=== PATIENT | female | born 1930 | race Caucasian/White ===

== ENCOUNTER 2016-12-29 21:50 | Inpatient (IN) | payer MEDICARE, BC ==
[2016-12-29] MEDS ORDERED: NS 0.9% 1000 ML* 1,000 ML IV ONE (22:20)
--- NOTE | 2016-12-29 22:49 | RAD ---
Indication: Diarrhea. Dehydration. Cardiac disease. History of tobacco use. Breast carcinoma. Comparison: March 02, 2016 Technique: Upright AP 2225 hours Report: Elevated lung volumes and mild prominence of the interstitial markings. Clear pleural spaces. Negative for pneumothorax. Median sternotomy wires, mediastinal vascular clips, RIGHT ventricular pacemaker lead. Retrocardiac lucency corresponds with a large hiatal hernia. Prominent central pulmonary vasculature with peripheral attenuation most likely reflecting pulmonary arterial hypertension. IMPRESSION: 1. Stigmata of chronic obstructive pulmonary disease with probable pulmonary arterial hypertension. 2. No evidence for pneumonia or compelling evidence for pulmonary edema. 3. Large retrocardiac hiatal hernia.
[2016-12-29 22:50] LABS: ALT 168 U/L (7-52); Albumin 3.5 g/dL (3.2-5.2); Alkaline Phosphatase 175 U/L (34-104); BUN/Creatinine Ratio 22.7 (8-20); Blood Urea Nitrogen 65 mg/dL (6-24); CO2 Carbon Dioxide 15 mmol/L (22-32); Calcium 8.8 mg/dL (8.6-10.3); Chloride 98 mmol/L (101-111); EGFR African American 20.1 (>60); EGFR Non-African American 15.6 (>60); Globulin 3.6 g/dL (2-4); Glucose 178 mg/dL (70-100); Sodium 122 mmol/L (133-145); Total Protein 7.1 g/dL (6.4-8.9)
[2016-12-29 22:52] LABS: Troponin I 1.85 ng/mL (<0.04)
[2016-12-29] MEDS ORDERED: Ondansetron ODT TAB* 4 MG SL PRN (23:05)
[2016-12-29] MEDS ORDERED: Ondansetron ODT TAB* 4 MG ONE (23:07)
--- NOTE | 2016-12-29 23:35 | HP ---
H&P (Free Text) History and Physical: PCP: Mike Esparza MD Date/Time of Evaluation: 12/30/2016 2300 CC: diarrhea, generalized weakness HPI: Mrs Jarquin is an 86YO female living independently at [facility] HX GI bleeding, CAD who has had intermittent watery diarrhea with occasional fecal incontinence for ~1 month. She saw her PCP last week, reportedly having blood work done which was normal. She is fatigued, but arouses and answers appropriately, in fact recognizes me from her admission March 2016. She states her diarrhea worsened ~2 days ago. Her daughter who is at the bedside states it obviously had bright red blood in it and shows cell phone images of charcoal colored fecal incontinence on a floor and stool in a toiled ringed in bright red. She has had some nausea, but denies chest pain, SOB, F/C, B/U/F of urine, & palpitations. She began having some mild crampy abdominal pain ~30 minutes ago. Work up is notable hypotension systolics 90s, tachypnea in the low 20s, afebrile , & with an saO2 w/ poor pleth of 88% correlating with the reading reported by EMS. ECG is ventricularly paced, rate 50. CXR is negative for infiltrate or CHF. PMedHx CAD/stent/CABG HTN HLD breast CA PUD recurrent GI hemorrhage Allergies Warfarin [From Coumadin] Allergy (Severe, Verified 12/29/16 22:39) SEVERE RASH, ITCHING, SWELLIN Rash, Itching, Swelling Cefuroxime [From Ceftin] Allergy (Intermediate, Verified 12/29/16 22:39) Nausea And Vomiting Sulfa Antibiotics Allergy (Intermediate, Verified 12/29/16 22:39) LEGS AND FEET SWELL NSAID/ASPIRIN Adverse Reaction (Intermediate, Uncoded 12/29/16 22:39) HISTORY OF GI BLEED Ambulatory Orders Nursing to reconcile. PSurgHx CABG R TKA cholecystectomy pacer placement hysterectomy IVC filter placement sinus surgery cataract extraction tonsillectomy SocHx: no tobacco, alcohol, or recreational drugs; lives independently at [facility], ambulates using cane; DNR/I code status FamHx: reviewed, non-contributory ROS: as above, otherwise reviewed and all were negative Constitutional: NAD, normally developed, well-nourished critically-ill appearing elderly white female vitals: Vital Signs Temp 36.6 C 12/29/16 22:34 Pulse 53 12/30/16 00:45 Resp 23 12/30/16 01:00 BP 90/47 12/30/16 01:00 Pulse Ox 100 12/30/16 00:45 Intake & Output 12/29/16 12/29/16 12/30/16 11:59 23:59 12:59 Weight 40.823 kg HEENM: atraumatic; sclera/conjunctiva: non-icteric/clear; palpebra: pale; blephara: sunken; hearing: moderately decreased; oropharynx: clear, mucosa dry & pale, lips cyanotic Neck: soft tissue: no nuchal rigidity; thyroid: normal Pulmonary: clear to auscultation bilaterally, good to fair aeration, no accessory muscle use CV: BR/RR, normal S1S2, no carotid bruit, no jugular venous distention, 2+ B DP/ PT, no edema Abdominal: soft, non-distended, non-tender, no rebound/guarding/rigidity, hypoactive bowel sounds, no hepatosplenomegaly or masses, no costovertebral angle tenderness Musculoskeletal: general: grossly intact; gait: too ill to ambulate Integumental: pale Psychiatric orientation: AA&O to PPS affect: somnolent mood: pleasant eye contact: poor content: reliable responses: mildly slowed insight: fair Testing: Lab Results 12/29/16 12/29/16 12/29/16 Range/Units 22:30 23:00 23:00 WBC (3.5-10.8) 10^3/ul RBC (4.0-5.4) 10^6/ul Hgb (12.0-16.0) g/dl Hct (35-47) % MCV (80-97) fL MCH (27-31) pg MCHC (31-36) g/dl RDW (10.5-15) % Plt Count (150-450) 10^3/ul MPV (7.4-10.4) um3 Neut % (Auto) (38-83) % Lymph % (Auto) (25-47) % [place] % (Auto) (1-9) % Eos % (Auto) (0-6) % Baso % (Auto) (0-2) % Absolute Neuts (auto) (1.5-7.7) 10^3/ul Absolute Lymphs (auto) (1.0-4.8) 10^3/ul Absolute Monos (auto) (0-0.8) 10^3/ul Absolute Eos (auto) (0-0.6) 10^3/ul Absolute Basos (auto) (0-0.2) 10^3/ul Absolute Nucleated RBC 10^3/ul Nucleated RBC % Sodium 122 L (133-145) mmol/L Potassium TNP Chloride 98 L (101-111) mmol/L Carbon Dioxide 15 L (22-32) mmol/L Anion Gap TNP BUN 65 H (6-24) mg/dL Creatinine 2.86 H (0.51-0.95) mg/dL Est GFR ( Amer) 20.1 (>60) Est GFR (Non-Af Amer) 15.6 (>60) BUN/Creatinine Ratio 22.7 H (8-20) Glucose 178 H (70-100) mg/dL Lactic Acid 3.0 H* (0.5-2.0) mmol/L Calcium 8.8 (8.6-10.3) mg/dL Total Bilirubin 0.70 (0.2-1.0) mg/dL AST TNP ALT 168 H (7-52) U/L Alkaline Phosphatase 175 H (34-104) U/L Troponin I 1.85 H* (<0.04) ng/mL B-Natriuretic Peptide 1880 H ( - 100) pg/mL Total Protein 7.1 (6.4-8.9) g/dL Albumin 3.5 (3.2-5.2) g/dL Globulin 3.6 (2-4) g/dL Albumin/Globulin Ratio 1.0 (1-3) 12/30/16 Range/Units 00:32 WBC 15.9 H (3.5-10.8) 10^3/ul RBC 3.54 L (4.0-5.4) 10^6/ul Hgb 11.3 L (12.0-16.0) g/dl Hct 35 (35-47) % MCV 100 H (80-97) fL MCH 32 H (27-31) pg MCHC 32 (31-36) g/dl RDW 14 (10.5-15) % Plt Count 259 (150-450) 10^3/ul MPV 9 (7.4-10.4) um3 Neut % (Auto) 75.4 (38-83) % Lymph % (Auto) 10.0 L (25-47) % [place] % (Auto) 14.3 H (1-9) % Eos % (Auto) 0.1 (0-6) % Baso % (Auto) 0.2 (0-2) % Absolute Neuts (auto) 12.0 H (1.5-7.7) 10^3/ul Absolute Lymphs (auto) 1.6 (1.0-4.8) 10^3/ul Absolute Monos (auto) 2.3 H (0-0.8) 10^3/ul Absolute Eos (auto) 0 (0-0.6) 10^3/ul Absolute Basos (auto) 0 (0-0.2) 10^3/ul Absolute Nucleated RBC 0.02 10^3/ul Nucleated RBC % 0.1 Sodium (133-145) mmol/L Potassium Chloride (101-111) mmol/L Carbon Dioxide (22-32) mmol/L Anion Gap BUN (6-24) mg/dL Creatinine (0.51-0.95) mg/dL Est GFR ( Amer) (>60) Est GFR (Non-Af Amer) (>60) BUN/Creatinine Ratio (8-20) Glucose (70-100) mg/dL Lactic Acid (0.5-2.0) mmol/L Calcium (8.6-10.3) mg/dL Total Bilirubin (0.2-1.0) mg/dL AST ALT (7-52) U/L Alkaline Phosphatase (34-104) U/L Troponin I (<0.04) ng/mL B-Natriuretic Peptide ( - 100) pg/mL Total Protein (6.4-8.9) g/dL Albumin (3.2-5.2) g/dL Globulin (2-4) g/dL Albumin/Globulin Ratio (1-3) ECG, personally reviewed: ventricularly paced, rate 50 CXR, personally reviewed: IMPRESSION: 1. Stigmata of chronic obstructive pulmonary disease with probable pulmonary arterial hypertension. 2. No evidence for pneumonia or compelling evidence for pulmonary edema. 3. Large retrocardiac hiatal hernia. Impression: 86F presenting with hypotensive bright red blood in the stool HX PUD & GI bleeding and a HGB of 11.3 makes me most concerned for sudden massive upper GI bleed explaining her troponin of 1.8 (given HX CAD/CABG/stent), lactic acid of 3.0; however, I discussed with her twin daughters who are present that VT could produce this, but is less likely; additionally, while ischemic bowel is usually painful it is certainly possible. With her DNR/I status critically- ill appearance, I advised that if her clinical picture is due to ischemic bowel she will not survive regardless of management, that if her situation was due to a massive VT similarly she would be very unlikely to survive. However, if her illness is a massive upper GI bleed, we may be able to return her to her former functional status. They expressed understanding and agreed to that approach. As such, no CT of the abdomen was performed as it would only delay the potential treatment of hemorrhage and not likeley provide any information useful in treatment. DIAGNOSIS & PLAN Primary SIRS 2nd suspected GI hemorrhage, less likely sepsis of unknown source (? ischemic bowel) or primary VT : ICU admission : IVFs : type & cross, 2 units on hold : trend H&H : ED MD to place central line for pressor support : norepinephrine GTT : IV piperacillin/tazobactam empirically : blood & urine CXs : supplemental oxygen : supportive care NSTEMI HX CAD : doubt primary coronary occlusive event as she has chest pain/SOB/diaphoresis : suspect 2nd demand ischemia 2nd massive GI hemorrhage vs overwhelming sepsis : no heparin or aspirin 2nd bright red blood per rectum : no beta donna 2nd hypotension DERRICK : IVFs, trend hypoNatremia : suspect hypovolemic : IVFs & trend acute heart failure : suspect high output from acute blood loss vs sepsis Secondary HTN : hold anti-hypertensives for now breast CA : no acute issues PUD : IV pantoprazole bolus/GTT Admission Rational: observation for TIA work up DVTp: SCDs, no anticoagulation 2nd HX recurrent GI hemorrhage Code Status: DNR/I HCP: children collectively
[2016-12-30 00:46] LABS: Hematocrit 35 % (35-47); Hemoglobin 11.3 g/dl (12.0-16.0); Mean Corpuscular HGB Conc 32 g/dl (31-36); Mean Corpuscular Hemoglobin 32 pg (27-31); Mean Corpuscular Volume 100 fL (80-97); Mean Platelet Volume 9 um3 (7.4-10.4); Red Blood Count 3.54 10^6/ul (4.0-5.4); Red Cell Distribution Width 14 % (10.5-15); White Blood Count 15.9 10^3/ul (3.5-10.8)
[2016-12-30 00:49] LABS: Add Diff/Slide Review? Slide Review Added; Comments Flag Yes
[2016-12-30] MEDS ORDERED: Pantoprazole IV* 40 MG IV ONE (00:57)
[2016-12-30] MEDS ORDERED: Pantoprazole IV* 80 MG in NS 0.9% 250 ML* 250 ML IV SCH (01:00)
--- NOTE | 2016-12-30 01:29 | ED ---
Johnny José Matthew, scribed for Oscar Molina on 12/29/16 at 2223 . GI/ HPI - HPI Summary HPI Summary: An 86 y/o female presents to the ED with diarrhea since 2 days ago. Associated symptoms include weakness, black stools, and blood w/ stools. The patient has had intermittent bouts of diarrhea since November. The patient does not use home oxygen. She was seen by her PCP 4 days ago. - History of Current Complaint Time Seen by Provider: 12/29/16 21:52 Stated Complaint: GENERAL Hx Obtained From: Patient Onset/Duration: Started Days Ago, Atraumatic, Still Present Severity: Moderate Current Severity: Moderate Associated Signs and Symptoms: Positive: Weakness - general, Black Tarry Stool, Blood w/Stool, Diarrhea - Additional Pertinent History Primary Care Physician: SUSAN - Allergy/Home Medications Allergies/Adverse Reactions: Allergies Allergy/AdvReac Type Severity Reaction Status Date / Time Warfarin [From Coumadin] Allergy Severe SEVERE Verified 12/29/16 22:39 RASH, ITCHING, SWELLIN Cefuroxime [From Ceftin] Allergy Intermediate Nausea And Verified 12/29/16 22:39 Vomiting Sulfa Antibiotics Allergy Intermediate LEGS AND Verified 12/29/16 22:39 FEET SWELL NSAID/ASPIRIN AdvReac Intermediate HISTORY OF Uncoded 12/29/16 22:39 GI BLEED PMH/Surg Hx/FS Hx/Imm Hx Endocrine/Hematology History: Reports: Hx Blood Transfusions, Hx Anemia Denies: Hx Anticoagulant Therapy, Hx Diabetes Cardiovascular History: Reports: Hx Auto Implanted Cardiovert Defib, Hx Congestive Heart Failure, Hx Coronary Artery Disease, Hx Hypercholesterolemia, Hx Hypertension, Hx Pacemaker/ICD, Hx Valvular Heart Disease Denies: Hx Myocardial Infarction, Hx Peripheral Vascular Disease Respiratory History: Reports: Hx Pulmonary Embolism - HX OF BLOOD CLOT IN LEFT LEG AFTER CARDIAC SURGERY Denies: Hx Asthma, Hx Chronic Obstructive Pulmonary Disease (COPD) GI History: Reports: Hx Gastroesophageal Reflux Disease, Hx Gastrointestinal Bleed, Hx Hiatal Hernia, Hx Ulcer, Other GI Disorders - GI bleeds x 2 in the past Musculoskeletal History: Reports: Hx Back Problems Denies: Hx Arthritis, Hx Osteoporosis Sensory History: Reports: Hx Cataracts, Hx Contacts or Glasses, Hx Macular Degeneration, Hx Vision Problem, Hx Hearing Aid, Hx Hearing Problem Denies: Hx Eye Injury, Hx Eye Prosthesis Opthamlomology History: Reports: Hx Cataracts, Hx Contacts or Glasses, Hx Macular Degeneration, Hx Vision Problem Denies: Hx Eye Injury, Hx Eye Prosthesis Neurological History: Denies: Hx Dementia, Hx Developmental Delay, Hx Headaches, Hx Migraine, Hx Nerve Disease, Hx Seizures, Hx Spinal Cord Injury, Hx Transient Ischemic Attacks (TIA) - Cancer History Cancer Type, Location and Year: breast cancer with left lumpectomy 2013 Hx Chemotherapy: No Hx Radiation Therapy: No - Surgical History Surgery Procedure, Year, and Place: 1997 CHOLECYSTECTOMY,. 2000 HI FILTER INSERTION,. 2000 RIGHT TOTAL KNEE REPLACEMENT,. MULTIPLE BENIGN BREAST BIOPSIES,. 1979 COMPLETE HYSTERECTOMY,. EXTENSIVE SURGERIES. 1999 CARDIAC CATHETERIZATION WITH ANGIOPLASTY AND 2 STENTS, [place]. 2010 ANGIOPLASTY WITH CARDIAC STENT PLACEMENT, [place]. 1999 TRIPLE CARDIAC BYPASS, [place] Hx Anesthesia Reactions: No - Immunization History Date of Tetanus Vaccine: Unk Date of Influenza Vaccine: None Infectious Disease History: Reports: Hx of Known/Suspected MRSA - lower extremity wound, now healed Denies: Hx Clostridium Difficile, Hx Hepatitis, Hx Human Immunodeficiency Virus (HIV), Hx Shingles, Hx Tuberculosis, Hx Known/Suspected VRE, Hx Known/ Suspected VRSA - Family History Known Family History: Negative: Diabetes Family History: No FHx of breast CA - Social History Alcohol Use: None Substance Use Type: Reports: None Hx Tobacco Use: Yes Smoking Status (MU): Never Smoked Tobacco Have You Smoked in the Last Year: No Review of Systems Constitutional: Negative Eyes: Negative ENT: Negative Cardiovascular: Negative Respiratory: Negative Positive: Diarrhea. Negative: Abdominal Pain Genitourinary: Other - blood w/ stools, black stools Musculoskeletal: Negative Skin: Negative Neurological: Negative Psychological: Normal All Other Systems Reviewed And Are Negative: Yes Physical Exam Triage Information Reviewed: Yes Vital Signs On Initial Exam: Initial Vitals Temp Pulse Resp BP Pulse Ox 97.8 F 50 24 96/46 90 12/29/16 21:51 12/29/16 21:51 12/29/16 21:51 12/29/16 21:51 12/29/16 21:51 Vital Signs Reviewed: Yes Appearance: Positive: No Pain Distress Skin: Positive: Warm, Skin Color Reflects Adequate Perfusion, Dry Head/Face: Positive: Normal Head/Face Inspection Eyes: Positive: EOMI, SKYLAR ENT: Positive: Other - dry mucous membranes; HABEMATOLEL Neck: Positive: Supple, Nontender Respiratory/Lung Sounds: Positive: Clear to Auscultation, Breath Sounds Present Cardiovascular: Positive: RRR, Pulses are Symmetrical in both Upper and Lower Extremities Abdomen Description: Positive: Nontender, Soft Bowel Sounds: Positive: Present Musculoskeletal: Positive: Normal, Strength/ROM Intact Neurological: Positive: Normal, Sensory/Motor Intact, Alert, Oriented to Person Place, Time Psychiatric: Positive: Affect/Mood Appropriate Diagnostics - Vital Signs Vital Signs Temp Pulse Resp BP Pulse Ox 12/29/16 23:30 49 20 92/49 100 12/29/16 23:27 50 20 100/42 99 12/29/16 23:26 55 18 87 12/29/16 23:10 50 20 97/47 94 12/29/16 23:00 50 22 99 12/29/16 22:44 91/44 12/29/16 22:34 97.8 F 50 24 96/46 90 12/29/16 22:00 92/60 12/29/16 21:55 48 22 96/46 85 12/29/16 21:54 25 20 88 12/29/16 21:51 97.8 F 50 24 96/46 90 - Laboratory Lab Results: Lab Results 12/29/16 12/29/16 12/29/16 Range/Units 22:30 23:00 23:00 Sodium 122 L (133-145) mmol/L Potassium TNP Chloride 98 L (101-111) mmol/L Carbon Dioxide 15 L (22-32) mmol/L Anion Gap TNP BUN 65 H (6-24) mg/dL Creatinine 2.86 H (0.51-0.95) mg/dL Est GFR ( Amer) 20.1 (>60) Est GFR (Non-Af Amer) 15.6 (>60) BUN/Creatinine Ratio 22.7 H (8-20) Glucose 178 H (70-100) mg/dL Lactic Acid 3.0 H* (0.5-2.0) mmol/L Calcium 8.8 (8.6-10.3) mg/dL Total Bilirubin 0.70 (0.2-1.0) mg/dL AST TNP ALT 168 H (7-52) U/L Alkaline Phosphatase 175 H (34-104) U/L Troponin I 1.85 H* (<0.04) ng/mL B-Natriuretic Peptide 1880 H ( - 100) pg/mL Total Protein 7.1 (6.4-8.9) g/dL Albumin 3.5 (3.2-5.2) g/dL Globulin 3.6 (2-4) g/dL Albumin/Globulin Ratio 1.0 (1-3) Result Diagrams: 12/30/16 00:32 12/29/16 22:30 Lab Statement: Any lab studies that have been ordered have been reviewed, and results considered in the medical decision making process. - Radiology CXR Xray Interpretation: Positive (See Comments) - IMPRESSION: 1. Stigmata of chronic obstructive pulmonary disease with probable pulmonary arterial hypertension. 2. No evidence for pneumonia or compelling evidence for pulmonary edema. 3. Large retrocardiac hiatal hernia. Radiology Interpretation Completed By: Radiologist - EKG 21:56 Cardiac Rate: Bradycardia - 50 bpm EKG Interpretation: Paced Rhythm GIGU Course/Dx - Course Assessment/Plan: An 86 y/o female presents to the ED with diarrhea since 2 days ago. Associated symptoms include weakness, black stools, and blood w/ stools. CXR shows stigmata of chronic obstructive pulmonary disease with probable pulmonary arterial hypertension. 2. No evidence for pneumonia or compelling evidence for pulmonary edema. 3. Large retrocardiac hiatal hernia. EKG shows paced rhythm at 50 bpm. Labs were reviewed. Discussed the case with Dr. Espino who will admit the patient into his services. - Diagnoses Provider Diagnoses: Hyponatremia, Renal failure, ACS (acute coronary syndrome), Sepsis, GI bleed - Physician Notifications Discussed Care Of Patient With: Dr. Espino (Hospitalist) at 22:51 -- Notified of patient's history and will admit the patient into his services. - Critical Care Time Critical Care Time: 30-74 min - sepsis/gi bleeding Discharge - Discharge Plan Condition: Stable Disposition: ADMITTED TO [facility] documentation as recorded by the Johnny hall Matthew accurately reflects the service I personally performed and the decisions made by , Oscar Molina.
[2016-12-30] MEDS ORDERED: Norepinephrine 16MCG/ML IVPRE* 4,000 MCG/250 ML BAG IV ONE (03:02)
[2016-12-30] MEDS ORDERED: Pantoprazole IV* 80 MG in NS 0.9% 250 ML* 250 ML IVPB SCH (04:00)
[2016-12-30] MEDS ORDERED: PROCHLORPERAZINE INJ 5 MG/ML 2 ML VIAL IV PRN (04:18)
[2016-12-30 04:19] LABS: FIO2 15
[2016-12-30] MEDS ORDERED: PROCHLORPERAZINE INJ 5 MG/ML 2 ML VIAL ONE (04:21)
[2016-12-30 04:24] LABS: PCO2 Arterial 27 mmHg (35-45)
[2016-12-30 04:28] LABS: Hematocrit 35 % (35-47); Hemoglobin 10.7 g/dl (12.0-16.0); Mean Corpuscular HGB Conc 30 g/dl (31-36); Mean Corpuscular Hemoglobin 31 pg (27-31); Mean Corpuscular Volume 102 fL (80-97); Mean Platelet Volume 10 um3 (7.4-10.4); Red Blood Count 3.44 10^6/ul (4.0-5.4); Red Cell Distribution Width 14 % (10.5-15); White Blood Count 15.4 10^3/ul (3.5-10.8)
[2016-12-30 04:32] LABS: Comments Flag Yes
[2016-12-30 04:33] LABS: Add Diff/Slide Review? Slide Review Added
[2016-12-30 04:37] LABS: BUN/Creatinine Ratio 20.8 (8-20); Calcium 7.9 mg/dL (8.6-10.3); EGFR African American 19.2 (>60); EGFR Non-African American 14.9 (>60); Potassium 4.4 mmol/L (3.5-5.0)
[2016-12-30 05:12] LABS: Troponin I 2.6 ng/mL (<0.04)
[2016-12-30] MEDS ORDERED: NS 0.9% 1000 ML* 1,000 ML IV ONE (05:30)
[2016-12-30 07:29] VITALS: BP 110/72
--- NOTE | 2016-12-30 08:50 | DS ---
Date of Admission: 12/29/2016 Date of Discharge: 12/30/2016 Discharge Diagnoses ischemic bowel w/ 2nd overwhelming sepsis HPI Mrs Jarquin is an 86YO female living independently at [facility] HX GI bleeding, CAD who has had intermittent watery diarrhea with occasional fecal incontinence for ~1 month. She saw her PCP last week, reportedly having blood work done which was normal. She is fatigued, but arouses and answers appropriately, in fact recognizes me from her admission March 2016. She states her diarrhea worsened ~2 days ago. Her daughter who is at the bedside states it obviously had bright red blood in it and shows cell phone images of charcoal colored fecal incontinence on a floor and stool in a toiled ringed in bright red. She has had some nausea, but denies chest pain, SOB, F/C, B/U/F of urine, & palpitations. She began having some mild crampy abdominal pain ~30 minutes ago. Work up is notable hypotension systolics 90s, tachypnea in the low 20s, afebrile , & with an saO2 w/ poor pleth of 88% correlating with the reading reported by EMS. ECG is ventricularly paced, rate 50. CXR is negative for infiltrate or CHF. Troponin is 1.8, lactic acid 3.0. Hospital Course Mrs Jarquin was moved to the ICU where initially her BP improved to the 120s with IVFs. However repeat H&H after 2L NS was still at 10.7 effectively excluding the initial favored diagnosis of massive upper GI bleed. She continued to deny chest pain & SOB, but began complaining of more cramping abdominal pain. She was placed on Vapotherm 40L at 100% as her oxygenation was unable to be obtained. An ABG was performed showing a pH <7 HCO3 of 6.5 illuminating a rapidly building metabolic acidosis. I check on her finding her talking with her daughter and still recognizing me. 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 Approximately 5 minutes after checking on her, while I was on the phone w/ Dr Welch, nursing reported she had become unresponsive. I excused myself from the phone and found Mrs Jarquin unresponsive with agonal breathing and recommend complete withdrawal of treatment to prevent delaying her passing. Family agreed. She passed comfortably and rapidly after ~10minutes at 0455. Time for Discharge: >40min CC: Mike Esparza MD
== END 2016-12-30 04:55 | disposition expired | DRG 393 ==
LOC: ED 21:50 → MEDTELE 23:44 → ICU 12-30 01:19
PROVIDERS: ADMIT Hospitalist; ATTEND Hospitalist
DX: K55.9 Vascular disorder of intestine, unspecified (principal); A41.9 Sepsis, unspecified organism; N17.9 Acute kidney failure, unspecified; E87.2 Acidosis; E87.1 Hypo-osmolality and hyponatremia; K92.1 Melena; I50.9 Heart failure, unspecified; I11.0 Hypertensive heart disease with heart failure; I25.10 Atherosclerotic heart disease of native coronary artery without angina pectoris; Z95.1 Presence of aortocoronary bypass graft; E78.5 Hyperlipidemia, unspecified; Z85.3 Personal history of malignant neoplasm of breast; Z88.2 Allergy status to sulfonamides; Z88.8 Allergy status to other drugs, medicaments and biological substances; Z96.651 Presence of right artificial knee joint; Z98.49 Cataract extraction status, unspecified eye; Z66 Do not resuscitate; Z95.5 Presence of coronary angioplasty implant and graft; K27.9 Peptic ulcer, site unspecified, unspecified as acute or chronic, without hemorrhage or perforation; R19.7 Diarrhea, unspecified; Z95.810 Presence of automatic (implantable) cardiac defibrillator; Z86.711 Personal history of pulmonary embolism; K21.9 Gastro-esophageal reflux disease without esophagitis; H35.30 Unspecified macular degeneration; Z86.14 Personal history of Methicillin resistant Staphylococcus aureus infection
CPT/HCPCS: 36415; 36600; 71010; 80048; 80053; 82272; 82803; 83605; 83880; 84484; 85025; 85610; 85730; 86850; 86900; 86901; 86922; 93005; A9270-GY; J0780